=== PATIENT | female | born 1965 | race Caucasian/White ===

== ENCOUNTER 2017-04-19 10:53 | Outpatient (CLI) | payer BC ==
[2017-04-19 11:16] LABS: BASOPHILS # (AUTO) 0.1 10^3/uL (0.0-0.1); BASOPHILS % (AUTO) 1.3 %; EOSINOPHILS # (AUTO) 0.2 10^3/uL (0.0-0.7); EOSINOPHILS % (AUTO) 3.7 %; HCT - HEMATOCRIT 41.1 % (37.0-47.0); HGB - HEMOGLOBIN 13.9 g/dL (12.0-16.0); LYMPHOCYTES # (AUTO) 1.5 10^3/uL (1.5-3.5); LYMPHOCYTES % (AUTO) 27.4 %; MEAN CORPUSCULAR HEMOGLOBIN 30.1 pg (27.0-31.0); MEAN CORPUSCULAR HGB CONC 33.7 g/dL (32.0-36.0); MEAN CORPUSCULAR VOLUME 89.3 fL (81.0-99.0); MEAN PLATELET VOLUME 10.8 fL (7.9-10.8); MONOCYTES # (AUTO) 0.5 10^3/uL (0.0-1.0); MONOCYTES % (AUTO) 9.2 %; NEUTROPHILS # (AUTO) 3.2 10^3/uL (1.5-6.6); NEUTROPHILS % (AUTO) 58.4 %; RED BLOOD COUNT 4.61 10^6/uL (4.20-5.40); RED CELL DISTRIBUTION WIDTH 12.6 % (12.0-15.0); UNCORRECTED WHITE BLOOD COUNT 5.6 x10^3/uL; WHITE BLOOD COUNT 5.6 x10^3/uL (4.8-10.8)
[2017-04-19 11:35] LABS: ALBUMIN/GLOBULIN RATIO 1.7 (1.0-2.2); BUN - BLOOD UREA NITROGEN 11 mg/dL (6-20); CALCIUM 9.4 mg/dL (8.5-10.3); CARBON DIOXIDE - CO2 27 mmol/L (21-32); CHLORIDE 103 mmol/L (101-111); CHOL/HDL RATIO 2.8 (<4.4); CHOLESTEROL 202 mg/dL; CREATININE 0.8 mg/dL (0.4-1.0); GFR - MDRD 75 (>89); GLUCOSE 90 mg/dL (70-100); HDL CHOLESTEROL 73 mg/dL; SODIUM 139 mmol/L (135-145); TOTAL PROTEIN 6.9 g/dL (6.7-8.2); TRIGLYCERIDES 29 mg/dL
[2017-04-19 11:54] LABS: LDL CHOLESTEROL,DIRECT 122 mg/dL
== END 2017-04-19 10:54 | disposition home or self-care (01) ==
LOC: LAB 10:53
PROVIDERS: ATTEND Physician Assistant Medical
DX: Z00.00 Encounter for general adult medical examination without abnormal findings (principal)
CPT/HCPCS: 36415; 80053; 80061; 82306; 84443; 85025

== ENCOUNTER 2017-05-12 16:12 | Outpatient (CLI) | payer BC ==
--- NOTE | 2017-05-14 09:56 | Mammography Report ---
DIGITAL BILATERAL SCREENING MAMMOGRAM: 05/12/2017 CLINICAL HISTORY: A 52-year-old female in for routine screening mammogram. Patient has no family hi story of breast cancer. Patient has no prior history of breast surgeries. COMPARISON: 05/06/2009, 12/11/2012, 03/02/2015 TECHNIQUE: Craniocaudad and oblique lateral views of each breast were obtained with [facility] digital mammography. To compliment the exam, axillary exaggerated craniocaudad views of each tamika st were done. FINDINGS: Breast parenchyma consists of scattered fibroglandular densities. There are some calcific ations now seen in the medial aspect of the right breast. These appear to be associated with a blood vessel and probably reflect some early vascular calcifications. Recommend that these be followed wi th annual bilateral screening mammography. These were not noted on patient's old exams. No significant masses are noted. IMPRESSION: BREASTS APPEAR RADIOGRAPHICALLY BENIGN. BIRADS CATEGORY 2 - BENIGN FINDING. RECOMMENDATIONS: Annual bilateral screening mammography. STANDARD QUALIFYING STATEMENTS 1. This examination was reviewed with the aid of Computer-Aided Detection (CAD). 2. A negative or benign imaging report should not delay biopsy if clinically suspicious findings are present. Consider surgical consultation if warranted. More than 5% of cancers are not identified by i maging. 3. Dense breasts may obscure an underlying neoplasm. JOB #: [id number] EXT JOB #:[id number]
== END 2017-05-12 16:13 | disposition home or self-care (01) ==
LOC: DI.S 16:12
PROVIDERS: ATTEND Physician Assistant Medical
DX: Z12.31 Encounter for screening mammogram for malignant neoplasm of breast (principal)
CPT/HCPCS: 77067

== ENCOUNTER 2017-10-06 16:19 | Outpatient (CLI) | payer BC ==
[2017-10-06 16:54] LABS: BASOPHILS # (AUTO) 0.1 10^3/uL (0.0-0.1); BASOPHILS % (AUTO) 1.6 %; EOSINOPHILS # (AUTO) 0.2 10^3/uL (0.0-0.7); EOSINOPHILS % (AUTO) 4.4 %; HCT - HEMATOCRIT 41.7 % (37.0-47.0); HGB - HEMOGLOBIN 13.9 g/dL (12.0-16.0); LYMPHOCYTES # (AUTO) 2.1 10^3/uL (1.5-3.5); LYMPHOCYTES % (AUTO) 37.8 %; MEAN CORPUSCULAR HEMOGLOBIN 30.2 pg (27.0-31.0); MEAN CORPUSCULAR HGB CONC 33.3 g/dL (32.0-36.0); MEAN CORPUSCULAR VOLUME 90.8 fL (81.0-99.0); MEAN PLATELET VOLUME 10.9 fL (7.9-10.8); MONOCYTES # (AUTO) 0.7 10^3/uL (0.0-1.0); NEUTROPHILS # (AUTO) 2.4 10^3/uL (1.5-6.6); NEUTROPHILS % (AUTO) 44.2 %; RED CELL DISTRIBUTION WIDTH 12.5 % (12.0-15.0); UNCORRECTED WHITE BLOOD COUNT 5.5 x10^3/uL; WHITE BLOOD COUNT 5.5 x10^3/uL (4.8-10.8)
[2017-10-06 17:59] LABS: PLATELET ESTIMATE, MANUAL NORMAL (130-450,000) (NORMAL); PLATELET MORPHOLOGY 2+ GIANT PLATELETS (NORMAL)
== END 2017-10-06 16:20 | disposition home or self-care (01) ==
LOC: LAB 16:19
PROVIDERS: ATTEND Physician Assistant Medical
DX: R79.1 Abnormal coagulation profile (principal)
CPT/HCPCS: 36415; 85025

== ENCOUNTER 2017-10-11 13:06 | Outpatient (CLI) | payer BC ==
--- NOTE | 2017-10-13 08:04 | Ultrasound Report ---
EXAM: NECK ULTRASOUND EXAM DATE: 10/11/2017 01:35 PM. CLINICAL HISTORY: CERVICAL LYMPHADENOPATHY. Palpable lump COMPARISON: None. TECHNIQUE: Real-time sonographic imaging was performed by the supervisor maintenance utilizing color-flow. Multi ple paper sales representative static images were saved for review. FINDINGS: Corresponding to the palpable lump in the posterior right neck is a normal-appearing lymph node measuring 7 x 2 x 6 mm. No suspicious cystic or solid mass or abnormal fluid collection seen. No adjacent lymphadenopathy. IMPRESSION: The clinically palpable right posterior neck lump is a normal-appearing lymph node by jin james. [facility] Referring Provider Line: [phone] SITE ID: [id number]
== END 2017-10-11 13:07 | disposition home or self-care (01) ==
LOC: DI 13:06
PROVIDERS: ATTEND Internal Medicine
DX: R59.0 Localized enlarged lymph nodes (principal)
CPT/HCPCS: 76536

== ENCOUNTER 2017-12-17 10:22 | Outpatient (CLI) | payer BC ==
--- NOTE | 2017-12-17 11:17 | XRAY Report ---
THREE VIEW LEFT HAND: 12/17/2017 CLINICAL INDICATION: History of trauma, pain. FINDINGS: AP, lateral, oblique views of the left hand demonstrate a mildly displaced fracture of the base of the proximal phalanx of the fifth finger, with intraarticular extension. No other fracture is appreciated. No foreign body is seen in the soft tissues. IMPRESSION: MILDLY DISPLACED FRACTURE OF THE BASE OF THE PROXIMAL PHALANX OF THE LEFT FIFTH FINGER, INVOLVING THE ARTICULAR SURFACE. TD: 12/17/2017 11:15
== END 2017-12-17 10:23 | disposition home or self-care (01) ==
LOC: DI 10:22
PROVIDERS: ATTEND Physician Assistant Medical
DX: S92.512A Displaced fracture of proximal phalanx of left lesser toe(s), initial encounter for closed fracture (principal)

== ENCOUNTER 2018-03-12 08:00 | Outpatient (CLI) | payer BC ==
[2018-03-12 13:37] LABS: BASOPHILS # (AUTO) 0.1 10^3/uL (0.0-0.1); BASOPHILS % (AUTO) 1.3 %; EOSINOPHILS # (AUTO) 0.2 10^3/uL (0.0-0.7); EOSINOPHILS % (AUTO) 3.6 %; HGB - HEMOGLOBIN 13.8 g/dL (12.0-16.0); LYMPHOCYTES # (AUTO) 1.9 10^3/uL (1.5-3.5); LYMPHOCYTES % (AUTO) 37.5 %; MEAN CORPUSCULAR HEMOGLOBIN 30.2 pg (27.0-31.0); MEAN CORPUSCULAR HGB CONC 33.6 g/dL (32.0-36.0); MEAN CORPUSCULAR VOLUME 89.9 fL (81.0-99.0); MEAN PLATELET VOLUME 11.8 fL (7.9-10.8); MONOCYTES # (AUTO) 0.5 10^3/uL (0.0-1.0); MONOCYTES % (AUTO) 9.1 %; NEUTROPHILS # (AUTO) 2.4 10^3/uL (1.5-6.6); NEUTROPHILS % (AUTO) 48.5 %; PLT - PLATELET COUNT 143 10^3/uL (130-450); RED BLOOD COUNT 4.58 10^6/uL (4.20-5.40); RED CELL DISTRIBUTION WIDTH 12.7 % (12.0-15.0); WHITE BLOOD COUNT 4.9 x10^3/uL (4.8-10.8)
[2018-03-12 13:38] LABS: BILIRUBIN,URINE NEGATIVE (NEGATIVE); GLUCOSE, URINE (UA) NEGATIVE (NEGATIVE); KETONES,URINE (UA) NEGATIVE (NEGATIVE); LEUKOCYTE ESTERASE, URINE NEGATIVE (NEGATIVE); NITRITE,URINE NEGATIVE (NEGATIVE); OCCULT BLOOD,URINE NEGATIVE (NEGATIVE); PH,URINE 5.5 PH (5.0-7.5); PROTEIN,URINE NEGATIVE (NEGATIVE); UROBILINOGEN,URINE 0.2 (NORMAL) E.U./dL (NORMAL)
[2018-03-12 13:51] LABS: ALBUMIN 4.3 g/dL (3.2-5.5); ALBUMIN/GLOBULIN RATIO 1.5 (1.0-2.2); ALKALINE PHOSPHATASE 34 IU/L (42-121); ALT ALANINE AMINOTRANSFERASE 20 IU/L (10-60); AST ASPARTATE AMINOTRANSFERASE 30 IU/L (10-42); BUN - BLOOD UREA NITROGEN 14 mg/dL (6-20); CALCIUM 9.2 mg/dL (8.5-10.3); CARBON DIOXIDE - CO2 27 mmol/L (21-32); CHLORIDE 102 mmol/L (101-111); CHOL/HDL RATIO 2.8 (<4.4); CHOLESTEROL 236 mg/dL; CREATININE 0.8 mg/dL (0.4-1.0); GFR - MDRD 74 (>89); GLUCOSE 82 mg/dL (70-100); HDL CHOLESTEROL 83 mg/dL; LDL CHOLESTEROL,CALCULATED 143 mg/dL; LDL/HDL RATIO 1.7 (<4.4); SODIUM 138 mmol/L (135-145); TOTAL PROTEIN 7.2 g/dL (6.7-8.2); VLDL CHOLESTEROL 10 mg/dL
[2018-03-12 14:15] LABS: CLARITY,URINE CLEAR (CLEAR)
[2018-03-12 14:16] LABS: BACTERIA,URINE None Seen /HPF (None Seen); RBC,URINE None Seen /HPF (0-5); SQUAMOUS EPITHELIAL CELL,UR RARE Squamous (<= Few)
[2018-03-13 09:02] LABS: HEPATITIS C ANTIBODY NON-REACTIVE (NON-REACTIVE)
== END 2018-03-12 08:01 ==
LOC: LAB.R 08:00
PROVIDERS: ATTEND Physician Assistant Medical
DX: Z00.00 Encounter for general adult medical examination without abnormal findings (principal); Z13.818 Encounter for screening for other digestive system disorders; Z72.89 Other problems related to lifestyle
CPT/HCPCS: 80053; 80061; 81001; 83721; 84443; 85025; 86803; 87086

== ENCOUNTER 2018-03-28 08:05 | Outpatient (CLI) | payer BC ==
--- NOTE | 2018-03-28 21:30 | Ultrasound Report ---
EXAM: PELVIC ULTRASOUND. EXAM DATE: 03/28/2018 09:31 AM. CLINICAL HISTORY: Family history of malignant neoplasm of the ovary. Abdominal bloating. COMPARISON: None. TECHNIQUE: Realtime transabdominal pelvic scan performed to identify the uterus and adnexa and as an overview of other pelvic structures, followed by transvaginal scan to provide greater detail of the u terus and adnexa, with static image documentation. FINDINGS: Uterus: 6.4 x 2.4 x 4.2 cm, volume 34 cc. Anteverted position. Normal overall size and echotexture. Masses: A possible 1.9 cm submucosal/intramural fibroid is seen in the posterior mid uterine segment. Endometrium: 4 mm. Indistinct and overall not well visualized. Cervix: Unremarkable. Right Ovary: 2.4 x 1.4 x 1.2 cm, volume 2 cc. Normal echotexture and blood flow. Left Ovary: 1.3 x 0.7 x 1.1 cm, volume 0.6 cc. Normal echotexture and blood flow. Free Fluid: None. Other: None. IMPRESSION: 1. Normal ovaries assuming postmenopausal state. No adnexal lesion or masses identified. 2. Posterior intramural/submucosal mid uterine segment fibroid, otherwise, unremarkable appearance of the uterus. [facility] Referring Provider Line: [phone] SITE ID: [id number]
== END 2018-03-28 08:06 | disposition home or self-care (01) ==
LOC: DI 08:05
PROVIDERS: ATTEND Physician Assistant Medical
DX: D25.1 Intramural leiomyoma of uterus (principal); D25.0 Submucous leiomyoma of uterus; R14.0 Abdominal distension (gaseous); Z80.41 Family history of malignant neoplasm of ovary
CPT/HCPCS: 76830; 76856

== ENCOUNTER 2019-04-12 16:34 | Outpatient (CLI) | payer BC ==
--- NOTE | 2019-04-13 10:15 | Mammography Report ---
Reason: SCREENING MAMMO,DIFFUSE CYSTIC MASTOPAHTY Procedure Date: 04/12/2019 Accession Number: [id number] / [id number] Procedure: [facility] - Screening Mammo w/Ralph CPT Code: FULL RESULT: EXAM: Screening Mammo w/Ralph DATE: 04/12/2019 5:02 PM CLINICAL HISTORY: Screening encounter. No reported risk factors. TECHNIQUE: (B) - Bilateral CC, laterally exaggerated CC, MLO views were obtained. COMPARISON: 05/12/2017 through 05/06/2009. PARENCHYMAL PATTERN: (A) - The breast(s) demonstrate(s) scattered fibroglandular densities. FINDINGS: There are no suspicious masses, calcifications, or areas of distortion. IMPRESSION: Negative examination. BI-RADS category 1. RECOMMENDATION: (ANNUAL) - Recommend routine annual screening mammography. BI-RADS CATEGORY: (1) - Negative. STANDARD QUALIFYING STATEMENTS: 1. This examination was not reviewed with the aid of Computer-Aided Detection (CAD). 2. A negative or benign imaging report should not preclude biopsy if clinically suspicious findings are present. 3. Dense breasts may obscure an underlying neoplasm. 4. This examination was reviewed with the aid of 3D breast imaging (tomosynthesis).
== END 2019-04-12 16:35 | disposition home or self-care (01) ==
LOC: DI 16:34
PROVIDERS: ATTEND Naturopath
DX: Z12.31 Encounter for screening mammogram for malignant neoplasm of breast (principal)
CPT/HCPCS: 77063; 77067